=== PATIENT | male | born 1950 | race Hispanic/Latino ===

== ENCOUNTER → 2017-07-04 | Day surgery (SDC) | payer MEDICARE ==
--- NOTE | 2017-07-03 14:35 | Diagnostic Imaging Report ---
PROCEDURE: Frontal and lateral views of the chest. COMPARISON: Chest radiograph 06/12/2017 INDICATIONS: PRE OP BLADDER SURGERY FINDINGS: Lines/tubes: None. Lungs: The lungs are well inflated and clear. There is no evidence of pneumonia or pulmonary edema. Pleura: There is no pleural effusion or pneumothorax. Heart and mediastinum: The heart and the mediastinum are normal. Bones: No acute bony abnormality. Stable metallic structure in the spinal canal of the mid thoracic spine. IMPRESSION: No acute cardiopulmonary disease. Dictated by: Piter Hickey M.D. on 07/03/2017 at 14:43 Electronically approved by: Piter Hickey M.D. on 07/03/2017 at 14:43
[2017-07-03 14:40] LABS: BASOPHILS % 0.3 % (0.0-1.0); EOSINOPHILS % 0.2 % (0.0-6.0); LYMPHOCYTES # (AUTO) 0.5 (1.0-3.2); LYMPHOCYTES % 8.1 % (18.0-39.1); MEAN CORPUSCULAR HEMOGLOBIN 31.7 pg (28-32); MEAN CORPUSCULAR HGB CONC 33.3 g/dL (31-35); MEAN CORPUSCULAR VOLUME 95.2 fL (81-99); MONOCYTES # (AUTO) 0.2 (0.2-0.8); MONOCYTES % 2.5 % (4.4-11.3); NEUTROPHILS # (AUTO) 5.3 (2.1-6.9); NEUTROPHILS % 88.1 % (38.7-80.0); PLATELET COUNT 256 x10e3/uL (140-360); RED BLOOD COUNT 3.15 x10e6/uL (4.3-5.7); RED CELL DISTRIBUTION WIDTH 12.7 % (11.7-14.4)
[2017-07-03 14:55] LABS: ANION GAP 12.2 mmol/L (8-16); BLOOD UREA NITROGEN 13 mg/dL (7-26); BUN/CREATININE RATIO 18 (6-25); CALCIUM 9.1 mg/dL (8.4-10.2); CARBON DIOXIDE 25 mmol/L (22-29); CHLORIDE 106 mmol/L (98-107); CREATININE, SERUM 0.74 mg/dL (0.72-1.25); EST GLOMERULAR FILTRATION RATE > 60 ML/MIN (60-); GLUCOSE 147 mg/dL (74-118); POTASSIUM 4.2 mmol/L (3.5-5.1); SODIUM 139 mmol/L (136-145)
[~2017-07-04] MED LIST: BELLADONNA/OPIUM 60 MG SUPP PR ONE; CEFDINIR300 MG PO; CEFTRIAXONE SOD 1 GM VIAL ONE; DEXAMETHASONE SOD PHOS INJ 4 MG/ML VIAL ONE; DIOVAN HCT 3201 EAC1 PO; DIPHENHYDRAMINE HCL INJ 50 MG/ML VIAL ONE; FENTANYL CITRATE/PF 100MCG/2 ML INJ ONE; FLOMAX0.4 MG PO; GENTAMICIN 80MG/NS 100 ML 50 ML IV ONE; GENTAMICIN 80MG/NS IV ONE; HUMALOG100 UNIT/3 SC; IOPAMIDOL 610MG/1ML 300 MG/ML VIAL IV ONE; LEVAQUIN500 MG PO; LEVEMIR100 UNIT/1 SC; LIDOCAINE HCL 2% LOCAL INJ 5 ML SDV VIAL INJ ONE; MEDROL4 MG/DOSE-; MIDAZOLAM HCL 2 MG/2 ML VIAL ONE; MORPHINE SULFATE INJ 10 MG/ML ONE; NORCO 5-325 TA1 EACH PO; ONDANSETRON HCL INJ 2 MG/ML VIAL ONE; PROPOFOL IV EMULSION 10 MG/ML 20 ML VIAL ONE; SEVOFLURANE INHAL SOLN 250 ML PEN BTL ONE; ULTRAM50 MG PO
--- NOTE | 2017-08-25 06:57 | Operative Report ---
DATE OF PROCEDURE: July 04, 2017 PREOPERATIVE DIAGNOSES 1. Lower tract urinary obstruction. 2. Urinary tract infections. POSTOPERATIVE DIAGNOSES 1. Urethral stricture disease. 2. Obstructive BPH. 3. Bladder neck contracture and obstruction. 4. Urinary tract infections. OPERATIONS PERFORMED: Note these are all staged procedures as part of multistage, multistep process in management of the patient's obstructive uropathy. 1. Cystourethroscopy with calibration and dilation of urethral stricture disease (separate procedure performed for the diagnosis of stricture). 2. Cystourethroscopy with transurethral resection of the bladder neck (separate procedure performed for the bladder neck contracture). 3. Cystourethroscopy with transurethral incision of the prostate (separate procedure performed for the obstructive BPH). 4. Cystourethroscopy with bilateral ureteral catheterization and retrograde ureteropyelography (separate procedure performed for the urinary tract infections). 5. Interpretation of retrograde ureteropyelography. 6. Interpretation of cystography. 7. Supervision of fluoroscopy. No radiologist present. ANESTHESIA: General. COMPLICATIONS: None. CLINICAL SUMMARY: Conor Mccoy is a 67-year-old man with obstructive BPH and urinary tract infections. He is brought to the operating room today to manage his lower urinary tract. He is aware of the risks of bleeding, infection, injury to adjacent structures, need for additional procedures, and elected to proceed. OPERATIVE PROCEDURE IN DETAIL: Informed consent was verified. Conor Mccoy was properly identified and taken to the operating room and placed on the cystoscopy table in the supine position. Anesthesia was uneventfully begun. The patient was then carefully and gently repositioned in the dorsal lithotomy position with all pressure points well-padded. His genitalia were prepared and draped in the usual sterile fashion. The 22.5-Singaporean cystoscope sheath with visual obturator in place was atraumatically inserted in the patient's urethra. It was guided down the urethra, which exhibited urethral stricture disease present throughout the majority of the patient's urethra. We dilated across these strictures with the visual obturator in place up to 22.5-Singaporean. We then proceeded by passing and dilating across this stricture just outside the external urinary sphincter. We then entered the patient's prostate bed that was significant for some regrowth of the patient's BPH, as well as the bladder neck contracture. We entered the patient's bladder. The bladder was drained. Panendoscopy of the urinary bladder revealed at least grade 2 trabeculations, but no tumors. No stones and no diverticula. Normally positioned and configured ureteral orifices were identified. An 8-Singaporean catheter was used to cannulate each ureter, and retrograde ureteropyelograms were performed. Interpretation of retrograde ureteropyelography. Contrast was instilled in a retrograde fashion bilaterally. There were no tumors. No stones and no diverticula. Unobstructed drainage was observed bilaterally fluoroscopically. We removed the cystoscope sheath and the resectoscope sheath was then placed under direct vision with the visual obturator in place. As we guided the sheath through the urethra, we dilated the urethra to the border of the resectoscope sheath. We then utilized the Resendiz knife. First we incised the bladder neck and opened it wide open. The incision was made at the 5 and 7 o'clock positions down to non-scarred tissue. This popped open the bladder neck. There seemed to be some obstruction at the level of the prostate bed at the residual tissue. We therefore proceeded with performing a transurethral incision of the prostate at the 5 and 7 o'clock positions. Once we finished this incision, the prostate bed was wide open. The resectoscope was withdrawn. The Vivas catheter was placed. It was inflated beyond the 30 mL of water in the 30 mL balloon. Contrast was then injected performing cystography. Interpretation cystography. The Vivas catheter balloon was in appropriate position within the bladder. I could not account assistant vesicoureteric reflux due to the prior retrograde pyelograms. The bladder exhibited some trabeculation. No extravasation was noted. A belladonna and opium suppository was placed. The patient was uneventfully reversed from anesthesia and taken to the recovery room in stable condition. There were no complications to the procedure. He tolerated the procedure well. Estimated blood loss was minimal. Explicit postoperative instructions were given. Will then plan on returning the patient to the office at which point in time will perform uroflowmetry and bladder ultrasonography. Job#: [id number] VENECIA
== END | disposition home or self-care (01) ==
LOC: OR 09:14
PROVIDERS: ATTEND Urology
DX: N40.1 Benign prostatic hyperplasia with lower urinary tract symptoms (principal); N13.8 Other obstructive and reflux uropathy; N32.0 Bladder-neck obstruction; N39.0 Urinary tract infection, site not specified; N35.9 Urethral stricture, unspecified; N32.89 Other specified disorders of bladder; N31.9 Neuromuscular dysfunction of bladder, unspecified; N39.41 Urge incontinence; R35.1 Nocturia; R81 Glycosuria; N52.9 Male erectile dysfunction, unspecified; G35 Multiple sclerosis; E11.9 Type 2 diabetes mellitus without complications; I10 Essential (primary) hypertension; D64.9 Anemia, unspecified; F41.9 Anxiety disorder, unspecified; Z01.810 Encounter for preprocedural cardiovascular examination; Z01.812 Encounter for preprocedural laboratory examination; Z01.818 Encounter for other preprocedural examination; Z79.4 Long term (current) use of insulin
CPT/HCPCS: 36415 ×2; 52005; 52630; 71020; 74420; 80048; 82948; 85025; 93005; C1758; J0696; J1100; J1200; J1580; J2001; J2250; J2270; J2405; Q9967

== ENCOUNTER 2017-08-18 13:08 | Emergency (ER) | payer MEDICARE ==
[~2017-08-18] VITALS: Ht 180.3 cm; Wt 87.5 kg
[~2017-08-18 13:08] MED LIST changes: -BELLADONNA/OPIUM 60 MG SUPP PR ONE; -CEFTRIAXONE SOD 1 GM VIAL ONE; -DEXAMETHASONE SOD PHOS INJ 4 MG/ML VIAL ONE; -DIPHENHYDRAMINE HCL INJ 50 MG/ML VIAL ONE; -FENTANYL CITRATE/PF 100MCG/2 ML INJ ONE; -GENTAMICIN 80MG/NS 100 ML 50 ML IV ONE; -GENTAMICIN 80MG/NS IV ONE; -IOPAMIDOL 610MG/1ML 300 MG/ML VIAL IV ONE; -LIDOCAINE HCL 2% LOCAL INJ 5 ML SDV VIAL INJ ONE; -MIDAZOLAM HCL 2 MG/2 ML VIAL ONE; -MORPHINE SULFATE INJ 10 MG/ML ONE; -ONDANSETRON HCL INJ 2 MG/ML VIAL ONE; -PROPOFOL IV EMULSION 10 MG/ML 20 ML VIAL ONE; -SEVOFLURANE INHAL SOLN 250 ML PEN BTL ONE
--- NOTE | 2017-08-18 14:36 | Diagnostic Imaging Report ---
PROCEDURE:HIP RIGHT 2-3 VW (+/- PELVIS) COMPARISON:None. INDICATIONS:FALL, HIP PAIN FINDINGS: See conclusion. CONCLUSION: No evidence of acute displaced fracture or dislocation of the hips. Right pelvic phleboliths. Dictated by: Joselito Burgos M.D. on 08/18/2017 at 14:45 Electronically approved by: Joselito Burgos M.D. on 08/18/2017 at 14:45
--- NOTE | 2017-08-18 14:43 | Diagnostic Imaging Report ---
PROCEDURE:L-SPINE COMPLETE COMPARISON:None. INDICATIONS:FALL, BACK PAIN FINDINGS: There are 5 lumbar-type vertebral bodies. The vertebral bodies are well-aligned, except for grade 1 L5-S1 spondylolisthesis. Compression deformity of L4 vertebral body. Multilevel degenerative changes. The is also lower lumbar spine facet arthropathy. CONCLUSION: Compression deformity/fracture of L4 vertebral body. Dictated by: Joselito Burgos M.D. on 08/18/2017 at 14:52 Electronically approved by: Joselito Burgos M.D. on 08/18/2017 at 14:52
[2017-08-18 16:55] VITALS: BP 151/100
== END 2017-08-18 16:53 | disposition home or self-care (01) ==
LOC: ER 13:08
DX: S70.01XA Contusion of right hip, initial encounter (principal); W01.0XXA Fall on same level from slipping, tripping and stumbling without subsequent striking against object, initial encounter; Z91.81 History of falling; Y92.019 Unspecified place in single-family (private) house as the place of occurrence of the external cause; S32.049A Unspecified fracture of fourth lumbar vertebra, initial encounter for closed fracture
CPT/HCPCS: 72110; 99283

== ENCOUNTER → 2017-08-25 | Outpatient (CLI) | payer MEDICARE ==
[~2017-08-25] MED LIST changes: +GABAPENTIN300 MG PO
--- NOTE | 2017-08-25 15:55 | Diagnostic Imaging Report ---
EXAMINATION: MRI of the lumbar spine without contrast HISTORY: Lumbar spine vertebral fracture COMPARISON: Abdomen CT on 06/12/2017 TECHNIQUE: Sagittal T1, T2, STIR; axial T2 and proton density. FINDINGS: It is assumed that there are 5 lumbar vertebrae. Curvature/Alignment: Straightening of the lumbar lordosis. Persistent grade 2 spondylolisthesis at L5-S1 with bilateral L5 spondylolyses, portable prior posterior fusion. Vertebrae: Moderate recent compression fracture of the L4 vertebral body, with decreased vertebral body height anteriorly by approximately 50%, with prominent subchondral bone marrow edema. The fracture is not extending to the posterior cortex or posterior elements. No associated posterior ligamentous injury. No infection, or neoplasm. Conus: Normal, terminating at L1 Cauda equina: Unremarkable. Lower thoracic: Mild symmetric disc bulge at T12-L1 without stenosis Paraspinal soft tissues: Severe atrophy of the posterior paraspinal muscles from L4 to the sacrum. Degenerative changes: L1-L2: Symmetric disc bulge and facet arthrosis. Mild foraminal stenoses L2-L3: Mild symmetric disc bulge, ligamenta flava thickening and facet arthrosis. Mild spinal canal stenosis. L3-L4: Minimal symmetric disc bulge, prominent facet arthrosis. No significant stenoses. L4-L5: Mild disc bulge, prominent facet arthrosis. Mild foraminal stenosis. L5-S1: Probable prior posterior fusion with solid fusion on the right, no fusion on the left as was seen on prior abdomen CT dated 11/17/2015. Symmetric disc bulge, marginal endplate osteophytes and prominent facet arthrosis. Moderately severe bilateral foraminal stenoses. IMPRESSION: 1. Moderate recent compression fracture of the L4 vertebral body without posterior retropulsion or canal stenoses. 2. Persistent grade 2 spondylolisthesis at L5-S1. 3. Posterior fusion at L5-S1 as detailed above. 4. Persistent moderately severe bilateral foraminal stenosis at L5-S1. 5. Mild degenerative canal stenosis at L2-L3. The findings were discussed with the attending physicians coordinator Devika at the time of this dictation, she expresses understanding and well inform the attending physician about this findings. Signed by: Dr. Carolina Sharma M.D. on 08/25/2017 3:51 PM
== END ==
LOC: MRI 12:57
PROVIDERS: ATTEND Anesthesiology
DX: S32.009S Unspecified fracture of unspecified lumbar vertebra, sequela (principal)
CPT/HCPCS: 72148

== ENCOUNTER 2017-09-01 05:16 | Emergency (ER) | payer MEDICARE ==
[~2017-09-01] VITALS: Ht 180.3 cm; Wt 87.5 kg
[~2017-09-01 05:16] MED LIST changes: -GABAPENTIN300 MG PO
--- OUTSIDE RECORDS SUMMARY | 2017-09-01 05:20 | XMS REPORT ---
[facility] Address Unknown Phone Unavailable Care Team Providers Care Passenger Service Representative Name Role Phone RAMILA LEWIS Unavailable Unavailable MALIK GONZALEZ Unavailable Unavailable JS, CONNIE Unavailable Unavailable TORIBIO, HARSH Unavailable Unavailable Problems This patient has no known problems. Allergies, Adverse Reactions, Alerts This patient has no known allergies or adverse reactions. Medications This patient has no known medications. Results Test Description Test Time Test Comments Text Results Atomic Results Result Comments MRI SPINE LUMBAR WO [place] [address] Patient Name: ALEJANDRO CASTAÑEDA MR #: [id number] : 1950 Age/Sex: 67/M Req #: [id number] Adm Physician: Ordered by: RAMILA LEWIS MD Report #: [id number] Location: MRI Room/Bed: Procedure: [id number] MRI/MRI SPINE LUMBAR WO Exam Date: Exam Time: REPORT STATUS: Signed EXAMINATION: MRI of the lumbar spine without contrast HISTORY: Lumbar spine vertebral fracture COMPARISON: Abdomen CT on 06/12/2017 TECHNIQUE: Sagittal T1, T2, STIR; axial T2 and proton density. FINDINGS: It is assumed that there are 5 lumbar vertebrae. Curvature/Alignment: Straightening of the lumbar lordosis. Persistent grade 2 spondylolisthesis at L5-S1 with bilateral L5 spondylolyses, portable prior posterior fusion. Vertebrae: Moderate recent compression fracture of the L4 vertebral body, with decreased vertebral body height anteriorly by approximately 50%, with prominent subchondral bone marrow edema. The fracture is not extending to the posterior cortex or posterior elements. No associated posterior ligamentous injury. No infection, or neoplasm. Conus: Normal, terminating at L1 Cauda equina: Unremarkable. Lower thoracic: Mild symmetric disc bulge at T12-L1 without stenosis Paraspinal soft tissues: Severe atrophy of the posterior paraspinal muscles from L4 to the sacrum. Degenerative changes : L1-L2: Symmetric disc bulge and facet arthrosis. Mild foraminal stenoses L2-L3: Mild symmetric disc bulge, ligamenta flava thickening and facet arthrosis. Mild spinal canal stenosis. L3-L4: Minimal symmetric disc bulge, prominent facet arthrosis. No significant stenoses. L4-L5: Mild disc bulge, prominent facet arthrosis. Mild foraminal stenosis. L5-S1: Probable prior posterior fusion with solid fusion on the right, no fusion on the left as was seen on prior abdomen CT dated 2015. Symmetric disc bulge, marginal endplate osteophytes and prominent facet arthrosis. Moderately severe bilateral foraminal stenoses. IMPRESSION : 1. Moderate recent compression fracture of the L4 vertebral body without posterior retropulsion or canal stenoses. 2. Persistent grade 2 spondylolisthesis at L5-S1. 3. Posterior fusion at L5-S1 as detailed above. 4. Persistent moderately severe bilateral foraminal stenosis at L5- S1. 5. Mild degenerative canal stenosis at L2-L3. The findings were discussed with the attending physicians coordinator Devika at the time of this dictation, she expresses understanding and well inform the attending physician about this findings. Signed by: Dr. Corby Sharma M.D. on 2017 3:51 PM Dictated By: CORBY SHARMA MD 1558 Transcribed By: BLAISE on 08/25/17 1553 COPY TO: RAMILA LEWIS MD HIP RIGHT 2-3 VW (+/- PELVIS) [place] [address] Patient Name: ALEJANDRO CASTAÑEDA MR #: [id number] : 1950 Age/Sex: 67/M Req #: [id number] Adm Physician: Ordered by: GILDARDO CEE Report #: [id number] Location: ER Room/Bed: _ Procedure: [id number] DX/HIP RIGHT 2-3 VW (+/- PELVIS) Exam Date: Exam Time: REPORT STATUS: Signed PROCEDURE: HIP RIGHT 2-3 VW (+/- PELVIS) COMPARISON: None. INDICATIONS: FALL, HIP PAIN FINDINGS: See conclusion. CONCLUSION: No evidence of acute displaced fracture or dislocation of the hips. Right pelvic phleboliths. Dictated by: Joselito Rivera M.D. on 08/18/2017 at 14: 45 Electronically approved by: Joselito Rivera M.D. on 08/18/2017 at 14: 45 Dictated By: JOSELITO RIVERA MD 144 Transcribed By: SUSAN on 08/18/17 1445 COPY TO: GILDARDO CEE SP LUMBAR, COMPLETE MIN 4VW [place] [address] Patient Name: ALEJANDRO CASTAÑEDA MR #: [id number] : 1950 Age/Sex: 67/M Req #: [id number] Adm Physician: Ordered by: GILDARDO CEE Report #: [id number] Location: ER Room/Bed: _ Procedure: [id number] DX/SP LUMBAR, COMPLETE MIN 4VW Exam Date: 08/18/17 Exam Time: 1400 REPORT STATUS: Signed PROCEDURE: L-SPINE COMPLETE COMPARISON: None. INDICATIONS: FALL, BACK PAIN FINDINGS: There are 5 lumbar-type vertebral bodies. The vertebral bodies are well-aligned, except for grade 1 L5-S1 spondylolisthesis. Compression deformity of L4 vertebral body. Multilevel degenerative changes. The is also lower lumbar spine facet arthropathy. CONCLUSION: Compression deformity/fracture of L4 vertebral body. Dictated by: Joselito Rivera M.D. on 08/18/2017 at 14:52 Electronically approved by: Joselito Rivera M.D. on 08/18/2017 at 14:52 Dictated By: JOSELITO RIVERA MD 51 Transcribed By: SUSAN on 08/18/171451 COPY TO: GILDARDO CEE CHEST 2 VIEWS [place] [address] Patient Name: ALEJANDRO CASTAÑEDA MR #: [id number] : 1950 Age/Sex: 67/M Req #: [id number] [facility] Physician: Ordered by: CONNIE WEINSTEIN MD Report #: [id number] Location: OR Room/Bed: Procedure: [id number] DX/ CHEST 2 VIEWS Exam Date: 07/03/17 Exam Time: 1400 REPORT STATUS: Signed PROCEDURE: Frontal and lateral views of the chest. COMPARISON: Chest radiograph 06/12/2017 INDICATIONS: PRE OP BLADDER SURGERY FINDINGS: Lines/tubes: None. Lungs: The lungs are well inflated and clear. There is no evidence of pneumonia or pulmonary edema. Pleura: There is no pleural effusion or pneumothorax. Heart and mediastinum: The heart and the mediastinum are normal. Bones: No acute bony abnormality. Stable metallic structure in the spinal canal of the mid thoracic spine. IMPRESSION: No acute cardiopulmonary disease. Dictated by: Piter Hester M.D. on 07/03/2017 at 14:43 Electronically approved by: Piter Hester M.D. on 07/03/2017 at 14:43 Dictated By: PITER HESTER MD 1443 Transcribed By: SUSAN on 07/03/17 1443 COPY TO: CONNIE WEINSTEIN MD CT BRAIN WO [place] [address] Patient Name: ALEJANDRO CASTAÑEDA MR #: [id number] : 1950 Age/Sex: 67/M Req #: [id number] Adm Physician: Ordered by: MESFIN BOUCHER MD Report #: [id number] Location: ER Room/Bed: Procedure: [id number] CT/CT BRAIN WO Exam Date: 06/12/17 Exam Time: 1255 REPORT STATUS: Signed Exam: Head CT without contrast History: Altered mental status Comparison studies: None Technique: Axial images were obtained from the skull base to the vertex. Coronal and sagittal images reconstructed from the axial data. Intravenous contrast: None Findings: Exam is limited by artifacts related to patient motion. In spite of this limitation: Scalp: Incidental focal soft tissue thickening in the right parietal scalp with small overlying punctate dystrophic calcification. Findings may reflect sequela previous trauma and could be correlated with direct inspection. Bones: No fractures, blastic or lytic lesions. In spite of these limitations: Brain sulci: Appropriate for age. Ventricles: Normal in size and configuration. No hydrocephalus. Extra- axial spaces: No masses, no fluid collection. Parenchyma: No mass, acute hemorrhage or acute or chronic cortical vascular insults. Sellar/ suprasellar region: No abnormalities. Craniocervical junction: Patent foramen magnum. No Chiari one malformation. Incidental findings: Atherosclerotic calcifications in the carotid siphons.. IMPRESSION: No acute abnormalities. Signed by: Dr. Claire Barajas M.D. on 06/12/2017 1: 57 PM Dictated By: CLAIRE BARAJAS MD 135 Transcribed By: BLAISE on 06/12/17 135 COPY TO: MESFIN BOUCHER MD CHEST SINGLE (PORTABLE) [place] [address] Patient Name: ALEJANDRO CASTAÑEDA MR #: [id number] : 1950 Age/Sex: 67/M Req #: [id number] Adm Physician: HARSH ROONEY MD Ordered by: MESFIN BOUCHER MD Report #: [id number] Location: ICU Room/Bed: ICU [facility] __ Procedure: [id number] DX/CHEST SINGLE (PORTABLE) Exam Date : 06/12/17 Exam Time: 1255 REPORT STATUS: Signed Examination: Single AP view of the chest. COMPARISON: None. INDICATION: Altered mental status DISCUSSION: Lines/tubes: None. Lungs: The lungs are well inflated and clear. No pneumonia or pulmonary edema. Pleura: There is no pleural effusion or pneumothorax. Heart and mediastinum: The heart and the mediastinum are unremarkable. Bones and soft tissues: No acute bony abnormalities. IMPRESSION: 1. No acute cardiopulmonary abnormalities. Signed by: Dr. Aryan Oliva M.D. on 06/12/2017 3:10 PM Dictated By: ARYAN OLIVA MD 09 Transcribed By: BLAISE on 06/12/171509 COPY TO: MESFIN BOUCHER MD
[2017-09-01] MEDS ORDERED: MORPHINE SULFATE 2 MG/ML SYR IV STA (05:41)
[2017-09-01] MEDS ORDERED: PANTOPRAZOLE 40 MG 10ML VIAL IV STA (05:41)
[2017-09-01] MEDS ORDERED: SODIUM CHLORIDE 0.9% 1000ML 1,000 ML IV STA (05:41)
[2017-09-01] MEDS ORDERED: ONDANSETRON HCL INJ 2 MG/ML VIAL IV STA (05:41)
[2017-09-01 06:22] LABS: BASOPHILS % 0.5 % (0.0-1.0); EOSINOPHILS # (AUTO) 0.1 (0.0-0.4); EOSINOPHILS % 1.7 % (0.0-6.0); HEMATOCRIT 46.5 % (38.2-49.6); HEMOGLOBIN 15.5 g/dL (14.0-18.0); LYMPHOCYTES % 17.5 % (18.0-39.1); MEAN CORPUSCULAR HEMOGLOBIN 31.2 pg (28-32); MEAN CORPUSCULAR HGB CONC 33.3 g/dL (31-35); MEAN CORPUSCULAR VOLUME 93.6 fL (81-99); MONOCYTES # (AUTO) 0.6 (0.2-0.8); MONOCYTES % 9.7 % (4.4-11.3); NEUTROPHILS # (AUTO) 4.1 (2.1-6.9); NEUTROPHILS % 69.9 % (38.7-80.0); PLATELET COUNT 255 x10e3/uL (140-360); RED BLOOD COUNT 4.97 x10e6/uL (4.3-5.7); RED CELL DISTRIBUTION WIDTH 12.1 % (11.7-14.4)
[2017-09-01 06:23] LABS: KETONES,URINE NEGATIVE (NEGATIVE); LEUKOCYTE ESTERASE ,URINE NEGATIVE (NEGATIVE); NITRITE,URINE NEGATIVE (NEGATIVE); PROTEIN,URINE DIPSTICK NEGATIVE (NEGATIVE); URINE UROBILINOGEN 1 mg/dL (0.2 - 1)
[2017-09-01 06:24] LABS: BILIRUBIN,URINE 1+ (NEGATIVE); CLARITY,URINE CLEAR (CLEAR); COLOR,URINE YELLOW (YELLOW)
[2017-09-01 06:37] LABS: BACTERIA,URINE FEW /HPF; EPITHELIAL CELLS,URINE FEW /LPF
[2017-09-01 06:40] LABS: PROTHROMBIN TIME 12.4 seconds (11.9-14.5)
[2017-09-01 06:41] LABS: PARTIAL THROMBOPLASTIN TIME 32.1 seconds (23.8-35.5)
[2017-09-01 06:51] LABS: ALANINE AMINOTRANSFERASE 60 IU/L (0-55); ALKALINE PHOSPHATASE 120 IU/L (40-150); AMYLASE 59 U/L (25-125); ANION GAP 13.5 mmol/L (8-16); BLOOD UREA NITROGEN 19 mg/dL (7-26); BUN/CREATININE RATIO 25 (6-25); CALCIUM 9.2 mg/dL (8.4-10.2); CARBON DIOXIDE 22 mmol/L (22-29); CHLORIDE 101 mmol/L (98-107); CREATINE KINASE 48 IU/L (30-200); CREATININE, SERUM 0.76 mg/dL (0.72-1.25); EST GLOMERULAR FILTRATION RATE > 60 ML/MIN (60-); GLUCOSE 133 mg/dL (74-118); LIPASE 20 U/L (8-78); MAGNESIUM 1.7 MG/DL (1.3-2.1); POTASSIUM 3.5 mmol/L (3.5-5.1); SODIUM 133 mmol/L (136-145)
[2017-09-01] MEDS ORDERED: GABAPENTIN300 MG PO (06:58)
[2017-09-01 07:10] LABS: THYROID STIMULATING HORMONE 0.799 uIU/mL (0.350-4.940)
[2017-09-01] MEDS ORDERED: CEFTRIAXONE SOD 1 GM VIAL IV STA (07:28)
--- NOTE | 2017-09-01 08:42 | Diagnostic Imaging Report ---
PROCEDURE: CT ABDOMEN AND PELVIS WITH CONTRAST TECHNIQUE: The abdomen and pelvis were scanned utilizing a multidetector helical scanner from the diaphragm to the lesser trochanter after the IV administration of 100 cc of Isovue 370 and the oral administration of water. Coronal and sagittal multiplanar reformations were obtained. DLP: 630.23 mGy-cm COMPARISON: [facility], CT, CT ABDOMEN/PELVIS WO, 12/23/2016, 14:43. INDICATIONS: ABDOMEN PAIN FINDINGS: LOWER THORAX: Normal. HEPATOBILIARY: No focal hepatic lesions. No biliary ductal dilatation. SPLEEN: No splenomegaly. PANCREAS: No focal masses or ductal dilatation. ADRENALS: No adrenal nodules. KIDNEYS/URETERS: No hydronephrosis, stones, or solid mass lesions. There are 2 right upper pole renal cysts with the largest being exophytic measuring 2.7 cm and extending posteriorly. PELVIC ORGANS/BLADDER: Unremarkable. PERITONEUM / RETROPERITONEUM: No free air or fluid. LYMPH NODES: No lymphadenopathy. VESSELS: Atherosclerotic vascular calcification in the aorta and iliac vessels. GI TRACT: Moderate retained fecal material throughout the colon. The appendix is normal. No bowel wall thickening or dilatation. BONES AND SOFT TISSUES: Lower thoracic spine metallic device posterior to T7 and T8 is unchanged. Compression fracture of L4 is new compared to the prior study. There is anterior listhesis of L5 on S1. Extensive facet arthrosis and posterior element degenerative changes from L3-L5 with partial fusion. IMPRESSION: 1. No acute abnormality within the abdomen or pelvis. 2. New compression fracture of L4. 3. Moderate amount of colonic retained fecal material may represent constipation. Joshua Randall D.O. Dictated by: Joshua Randall D.O. on 09/01/2017 at 8:51 Electronically approved by: Joshua Randall D.O. on 09/01/2017 at 8:51
[2017-09-01] MEDS ORDERED: DIPHENHYDRAMINE HCL INJ 50 MG/ML VIAL IV ONE (09:15)
--- NOTE | 2017-09-01 09:38 | Diagnostic Imaging Report ---
Examination: CT BRAIN WITHOUT CONTRAST History:Nausea. Vomiting. Comparison studies:CT Head dated 06/12/2017. Technique: Axial images were obtained from the skull base to the vertex. Coronal and sagittal images reconstructed from the axial data. Intravenous contrast: None Findings: Scalp: Unchanged right parietal scalp soft tissue containing with punctate (1 mm) dystrophic calcification, likely the result of prior trauma. Bones: No fractures, blastic or lytic lesions. Brain sulci: Appropriate for age. Ventricles: Normal in size and configuration. No hydrocephalus. Extra-axial space: No abnormalities. Parenchyma: No masses, hemorrhage, or acute or chronic cortically vascular insults. Sellar/suprasellar region: No abnormalities. Craniocervical junction: Patent foramen magnum. No Chiari one malformation. Incidental findings: Atherosclerotic calcification of the cavernous and supraclinoid internal carotid arteries. Impression: No new or acute intracranial abnormalities. No change from prior head CT performed June 12, 2017. Signed by: Dr. Madison Molina M.D. on 09/01/2017 9:35 AM
[2017-09-01 11:30] VITALS: BP 110/78
[2017-09-01] MEDS ORDERED: SODIUM CHLORIDE 0.9% 50ML 50 ML ONE (11:55)
[2017-09-01] MEDS ORDERED: IOPAMIDOL 370 MG/ML 200 ML INFUS..BTL INJ ONE (11:56)
== END 2017-09-01 11:40 | disposition home or self-care (01) ==
LOC: ER 05:16
DX: R10.12 Left upper quadrant pain (principal); R11.2 Nausea with vomiting, unspecified; N39.0 Urinary tract infection, site not specified; K59.00 Constipation, unspecified; R51 Headache; R42 Dizziness and giddiness
CPT/HCPCS: 36415; 70450; 74177; 80053; 81001; 82150; 82550; 82553; 82948; 83690; 83735; 84443; 84484; 85025; 85610; 85730; 87086; 87186; 87400; 93005; 96360; 96374; 99284; J0696; J1200; J2270; J2405; J7030; Q9967

== ENCOUNTER 2018-05-28 20:19 | Emergency (ER) | payer MEDICARE ==
[~2018-05-28] VITALS: Ht 180.3 cm; Wt 87.5 kg
[~2018-05-28 20:19] MED LIST changes: +GABAPENTIN300 MG PO
[2018-05-28] MEDS ORDERED: ONDANSETRON HCL INJ 2 MG/ML VIAL ONE (20:57)
[2018-05-28 21:32] LABS: BASOPHILS % 0.4 % (0.0-1.0); EOSINOPHILS # (AUTO) 0.2 (0.0-0.4); EOSINOPHILS % 2.1 % (0.0-6.0); HEMATOCRIT 41.9 % (38.2-49.6); HEMOGLOBIN 14.5 g/dL (14.0-18.0); LYMPHOCYTES # (AUTO) 1.4 (1.0-3.2); LYMPHOCYTES % 19.7 % (18.0-39.1); MEAN CORPUSCULAR HEMOGLOBIN 32.2 pg (28-32); MEAN CORPUSCULAR HGB CONC 34.6 g/dL (31-35); MEAN CORPUSCULAR VOLUME 92.9 fL (81-99); MONOCYTES # (AUTO) 0.7 (0.2-0.8); MONOCYTES % 9.4 % (4.4-11.3); NEUTROPHILS # (AUTO) 4.8 (2.1-6.9); PLATELET COUNT 213 x10e3/uL (140-360); RED BLOOD COUNT 4.51 x10e6/uL (4.3-5.7); RED CELL DISTRIBUTION WIDTH 11.9 % (11.7-14.4)
[2018-05-28 21:42] LABS: ALANINE AMINOTRANSFERASE 32 IU/L (0-55); ALBUMIN 3.9 g/dL (3.5-5.0); ALBUMIN/GLOBULIN RATIO 1.3 (0.8-2.0); ALKALINE PHOSPHATASE 88 IU/L (40-150); ANION GAP 15.4 mmol/L (8-16); BLOOD UREA NITROGEN 19 mg/dL (7-26); BUN/CREATININE RATIO 24 (6-25); CALCIUM 9.2 mg/dL (8.4-10.2); CARBON DIOXIDE 27 mmol/L (22-29); CHLORIDE 100 mmol/L (98-107); EST GLOMERULAR FILTRATION RATE > 60 ML/MIN (60-); GLUCOSE 175 mg/dL (74-118); POTASSIUM 3.4 mmol/L (3.5-5.1); SODIUM 139 mmol/L (136-145)
[2018-05-28 22:20] LABS: CLARITY,URINE CLEAR (CLEAR); COLOR,URINE YELLOW (YELLOW); LEUKOCYTE ESTERASE ,URINE NEGATIVE (NEGATIVE); NITRITE,URINE NEGATIVE (NEGATIVE); PROTEIN,URINE DIPSTICK NEGATIVE (NEGATIVE)
[2018-05-28 22:21] LABS: BILIRUBIN,URINE NEGATIVE (NEGATIVE); KETONES,URINE NEGATIVE (NEGATIVE)
[2018-05-28 22:22] LABS: BACTERIA,URINE FEW /HPF; EPITHELIAL CELLS,URINE RARE /LPF; RBC,URINE 0-5 /HPF (0-5); URINE UROBILINOGEN 1 mg/dL (0.2 - 1)
--- NOTE | 2018-05-29 00:41 | Diagnostic Imaging Report ---
EXAM: CT Abdomen and Pelvis WITH contrast INDICATION: Left lower quadrant pain. Abdominal pain, nausea, vomiting, painful urination COMPARISON: Abdominal CT 09/01/2017 TECHNIQUE: Abdomen and pelvis were scanned utilizing a multidetector helical scanner from the lung base to the pubic symphysis after administration of IV contrast. Coronal and sagittal reformations were obtained. Routine protocol was performed. Scan was performed during portal venous phase. IV CONTRAST: 100 mL of Isovue-370 ORAL CONTRAST: Water COMPLICATIONS: None RADIATION DOSE: Total DLP: 648.4 mGy*cm Estimated effective dose: (DLP x 0.015 x size factor) mSv CTDIvol has been reviewed. It is below the limits set by the Radiation Protocol Committee (RPC). Dose modulation, iterative reconstruction, and/or weight based adjustment of the mA/kV was utilized to reduce the radiation dose to as low as reasonably achievable. FINDINGS: LINES and TUBES: None. LOWER THORAX: Unremarkable HEPATOBILIARY: Hepatic segment VII 1.4 cm hypoattenuating lesion with peripheral nodular focus of enhancement (series 2 image 14), likely a hemangioma. No biliary ductal dilation. GALLBLADDER: No radio-opaque stones or sludge. No wall thickening. SPLEEN: No splenomegaly. PANCREAS: No focal masses or ductal dilatation. ADRENALS: No adrenal nodules KIDNEYS/URETERS: Kidneys enhance symmetrically. No hydronephrosis. Right renal 2.5 cm exophytic cyst in the interpolar region and 1.5 cm cyst in the superior pole. Additional scattered hypodensities both kidneys are too small to characterize, statistically likely cysts. No stones. GI TRACT: No abnormal distention or evidence of bowel obstruction. Ascending colonic wall thickening likely secondary to underdistention. There are numerous diverticula within the colon without evidence of diverticulitis. Appendix is normal. PELVIC ORGANS/BLADDER: V-shaped defect in the superior prostate suggestive of TURP. Prostate does not appear enlarged. Urinary bladder is collapsed, limiting evaluation. LYMPH NODES: No lymphadenopathy. VESSELS: There is moderate atherosclerotic disease in the aorta and major arterial branches. PERITONEUM / RETROPERITONEUM: No free air or fluid. BONES: L4 compression deformity with vertebroplasty cement. Anterolisthesis of L5 on S1 of approximately 1.2 cm. Multilevel degenerative changes of the spine. Severe facet hypertrophy from L3 to S1. Posterior spinal canal T7 and T8. SOFT TISSUES: Unremarkable. IMPRESSION: 1. No acute abnormalities. 2. Colonic diverticulosis. 3. Right hepatic hemangioma. 4. Renal cysts. 5. TURP defect in the prostate. 6. Grade 2 anterolisthesis of L5 on S1. Signed by: DR. Piter Hickey MD on 05/29/2018 12:37 AM
[2018-05-29 00:46] VITALS: BP 125/85
[2018-05-29] MEDS ORDERED: ZOFRAN ODT4 MG SL (00:51)
[2018-05-29] MEDS ORDERED: SODIUM CHLORIDE 0.9% 50ML 50 ML ONE (01:16)
[2018-05-29] MEDS ORDERED: IOPAMIDOL 370 MG/ML 200 ML INFUS..BTL INJ ONE (01:17)
== END 2018-05-29 01:00 | disposition home or self-care (01) ==
LOC: ER 20:19
DX: R30.0 Dysuria (principal); R10.32 Left lower quadrant pain; I10 Essential (primary) hypertension; E11.9 Type 2 diabetes mellitus without complications; E78.00 Pure hypercholesterolemia, unspecified; M10.9 Gout, unspecified
CPT/HCPCS: 36415; 74177; 80053; 81001; 85025; 99284; J2405; Q9967

== ENCOUNTER 2018-08-06 04:00 | Emergency (ER) | payer MEDICARE ==
[~2018-08-06] VITALS: Ht 180.3 cm; Wt 87.5 kg
[~2018-08-06 04:00] MED LIST changes: +ZOFRAN ODT4 MG SL
[2018-08-06 05:13] LABS: CLARITY,URINE CLEAR (CLEAR); COLOR,URINE YELLOW (YELLOW)
[2018-08-06 05:14] LABS: BACTERIA,URINE RARE /HPF; BILIRUBIN,URINE NEGATIVE (NEGATIVE); EPITHELIAL CELLS,URINE RARE /LPF; KETONES,URINE NEGATIVE (NEGATIVE); LEUKOCYTE ESTERASE ,URINE NEGATIVE (NEGATIVE); NITRITE,URINE NEGATIVE (NEGATIVE); PROTEIN,URINE DIPSTICK NEGATIVE (NEGATIVE); RBC,URINE 0-5 /HPF (0-5); URINE UROBILINOGEN 0.2 mg/dL (0.2 - 1); WBC,URINE (MAN) 0-5 /HPF (0-5)
--- NOTE | 2018-08-06 05:54 | Diagnostic Imaging Report ---
Exam: 2 views of the abdomen Indication: Stomach pain Comparison: CT abdomen and pelvis May 28, 2018 Findings: No consolidations in the lung bases. Intrathecal device projects over the lower thorax. Nonobstructive bowel gas pattern. Surgical changes of the lower lumbar spine. Impression: No acute findings. Signed by: Dr. Herlinda Metzger M.D. on 08/06/2018 5:51 AM
[2018-08-06 06:04] VITALS: BP 142/89
== END 2018-08-06 06:19 | disposition home or self-care (01) ==
LOC: ER 04:00
DX: R10.30 Lower abdominal pain, unspecified (principal); R11.0 Nausea; I10 Essential (primary) hypertension; E11.9 Type 2 diabetes mellitus without complications; E78.5 Hyperlipidemia, unspecified; G35 Multiple sclerosis
CPT/HCPCS: 36415; 74019; 81001; 82948; 87086; 99283

== ENCOUNTER → 2018-09-23 | Day surgery (SDC) | payer MEDICARE ==
--- NOTE | 2018-09-21 16:51 | Diagnostic Imaging Report ---
EXAMINATION: PA and lateral views of the chest. COMPARISON: None CLINICAL HISTORY: Preoperative study for prostate procedure DISCUSSION: Lungs are well-inflated and without focal consolidation, pleural effusion, or pneumothorax. Tortuosity of the thoracic aorta with otherwise normal cardiomediastinal contour. No acute osseous abnormality. Indeterminate radiopacities project over the lower thoracic vertebral column. IMPRESSION: No acute cardiopulmonary abnormalities. Signed by: Dr. Cooper Victor M.D. on 09/21/2018 4:48 PM
[~2018-09-23] MED LIST changes: +ALLOPURINOL300 MG PO; +BELLADONNA/OPIUM 30 MG SUPP RC ONE; +BOTULINUM TOXIN TYPE A 100 UNIT VIAL IM ONE; +CEFTRIAXONE SOD 1 GM/NS 50 ML 50 ML IV ONE; +DEXAMETHASONE SOD PHOS INJ 4 MG/ML VIAL ONE; +DIPHENHYDRAMINE HCL INJ 50 MG/ML VIAL ONE; +EPHEDRINE SULFATE INJ 50 MG/10 ML SYR ONE; +FENTANYL CITRATE/PF 100MCG/2 ML INJ ONE; +IOPAMIDOL 610MG/1ML 300 MG/ML VIAL IV ONE; +LIDOCAINE HCL 2% LOCAL INJ 5 ML SDV VIAL INJ ONE; +LOSARTAN-HCTZ1 EACH PO; +MIDAZOLAM HCL 2 MG/2 ML VIAL ONE; +MYRBETRIQ50 MG PO; +ONDANSETRON HCL INJ 2MG/ML 2ML 2 MG/ML VIAL ONE; +OXYCODONE-ACET1 EAC3 PO; +PROPOFOL IV EMULSION 10 MG/ML 20 ML VIAL ONE; +SEVOFLURANE INHAL SOLN 250 ML PEN BTL ONE
[2018-09-23 10:30] VITALS: BP 138/95
--- NOTE | 2018-11-18 06:42 | Operative Report ---
DATE OF PROCEDURE: 09/23/2018 SURGEON: Jay Burgess MD PREOPERATIVE DIAGNOSES: 1. Refractory urge incontinence. 2. Urinary tract infections. POSTOPERATIVE DIAGNOSES: 1. Refractory urge incontinence. 2. Urinary tract infections. OPERATION PERFORMED: 1. Cystourethroscopy with bilateral ureteral catheterization and retrograde ureteropyelography (separate procedure performed for the urinary tract infections). 2. Interpretation of retrograde ureteropyelography. 3. Cystourethroscopy with intravesical injection of Botox six (separate procedure performed for the refractory urge incontinence). ANESTHESIA: General. COMPLICATIONS: None. CLINICAL SUMMARY: Conor Mccoy is a 68-year-old man who has a neurogenic bladder due to multiple sclerosis. He has a history of transurethral resection of the prostate because of the history of urethral stricture disease and is status post direct direct vision internal urethrotomy. He has also had a problem with bladder neck contracture for which he underwent transurethral resection. The patient is brought for the above procedures. He is aware of the risks of bleeding, infection, injury to adjacent structures, need for additional procedures and elected to proceed. OPERATIVE PROCEDURE IN DETAIL: Informed consent was verified. Conor Mccoy was properly identified, taken to the operating room and placed on the cystoscopy table in supine position. Anesthesia was uneventfully begun. The patient was then carefully gently repositioned in dorsal lithotomy position with all pressure points well padded. His genitalia were prepared and draped in usual sterile fashion. The 22.5-Polish cystoscope sheath with the visual obturator in place was atraumatically inserted in the patient's urethra and was guided relatively to unremarkable urethra which exhibited mild scarring around the sphincteric region, but no true strictures and we passed a normal sphincteric region into the patient's prostate bed, which was wide open, status post transurethral resection. The bladder neck was also wide open, status post prior TUR bladder neck. Panendoscopy of the bladder revealed trabeculations, but no tumors, no stones, no diverticula. No suspicious mucosal lesions were identified. A ureteral catheter was used to cannulate each ureter and retrograde ureteropyelogram was performed. Interpretation of retrograde ureteropyelography: Contrast was instilled in retrograde fashion bilaterally. There were no tumors, no stones, and no diverticula. Unobstructed drainage was observed bilaterally fluoroscopically. 100 units of Botox were dissolved in 10 mL of sterile saline. Botox was then injected in 0.5 mL aliquots in an even distribution in the supratrigonal bladder. The bladder was drained. Cystoscope was withdrawn. Belladonna and opium suppository were placed revealing enlarged prostate that is smooth and non-fluctuant without any nodules. The patient was then uneventfully reversed from anesthesia and taken to the recovery room in stable condition. There were no complications of the procedure. He tolerated the procedure well. Explicit postop instructions were given. We will follow the patient up in the office. Jay MD Jenifer OH/MODL /[id number] cc: Kait Mcgraw MD
== END | disposition home or self-care (01) ==
LOC: OR 05:39
PROVIDERS: ATTEND Urology
DX: N39.41 Urge incontinence (principal); N39.0 Urinary tract infection, site not specified; N31.9 Neuromuscular dysfunction of bladder, unspecified; R35.1 Nocturia; N40.1 Benign prostatic hyperplasia with lower urinary tract symptoms; R39.14 Feeling of incomplete bladder emptying; N32.89 Other specified disorders of bladder; N52.9 Male erectile dysfunction, unspecified; R81 Glycosuria; G35 Multiple sclerosis; E11.9 Type 2 diabetes mellitus without complications; M10.9 Gout, unspecified; I10 Essential (primary) hypertension; F41.9 Anxiety disorder, unspecified; Z68.31 Body mass index [BMI] 31.0-31.9, adult; Z98.890 Other specified postprocedural states
CPT/HCPCS: 52005; 52287; 71046; 74420; 93005; C1758; J0587; J0696; J1100; J1200; J2001; J2250; J2405; J2704; Q9967

== ENCOUNTER → 2021-07-17 | Day surgery (SDC) | payer MEDICARE ==
[2021-07-12 12:28] LABS: BASOPHILS % 0.4 % (0.0-1.0); EOSINOPHILS # (AUTO) 0.1 (0.0-0.4); EOSINOPHILS % 2.4 % (0.0-6.0); HEMATOCRIT 39.6 % (38.2-49.6); HEMOGLOBIN 13.2 g/dL (14.0-18.0); LYMPHOCYTES # (AUTO) 0.8 (1.0-3.2); LYMPHOCYTES % 17.7 % (18.0-39.1); MEAN CORPUSCULAR HGB CONC 33.3 g/dL (31-35); MEAN CORPUSCULAR VOLUME 95.9 fL (81-99); MONOCYTES # (AUTO) 0.3 (0.2-0.8); MONOCYTES % 6.8 % (4.4-11.3); NEUTROPHILS # (AUTO) 3.4 (2.1-6.9); NEUTROPHILS % 72.5 % (38.7-80.0); PLATELET COUNT 227 x10e3/uL (140-360); RED BLOOD COUNT 4.13 x10e6/uL (4.3-5.7)
[~2021-07-17] MED LIST changes: +AMLODIPINE BESY10 MG PO; -BELLADONNA/OPIUM 30 MG SUPP RC ONE; -BOTULINUM TOXIN TYPE A 100 UNIT VIAL IM ONE; -CEFTRIAXONE SOD 1 GM/NS 50 ML 50 ML IV ONE; -DEXAMETHASONE SOD PHOS INJ 4 MG/ML VIAL ONE; -DIPHENHYDRAMINE HCL INJ 50 MG/ML VIAL ONE; -EPHEDRINE SULFATE INJ 50 MG/10 ML SYR ONE; +HYDROCODON-ACE1 EAC9 PO; -IOPAMIDOL 610MG/1ML 300 MG/ML VIAL IV ONE; +MELOXICAM7.5 MG PO; +METFORMIN HCL500 M2 PO; +METOCLOPRAM5 MG/5 ML PO; +METOPROLOL TART50 MG PO; -MIDAZOLAM HCL 2 MG/2 ML VIAL ONE; -ONDANSETRON HCL INJ 2MG/ML 2ML 2 MG/ML VIAL ONE; +PANTOPRAZOLE SO40 MG PO; +PIOGLITAZONE HC45 MG PO; -SEVOFLURANE INHAL SOLN 250 ML PEN BTL ONE; +TIZANIDINE HCL4 M1 PO; +VALSARTAN-HCTZ1 EAC1 PO; +VENLAFAXINE HCL75 M1 PO
[2021-07-17 10:25] VITALS: BP 118/79
== END | disposition home or self-care (01) ==
LOC: OR 06:41
PROVIDERS: ATTEND Internal Medicine Gastroenterology
DX: K29.50 Unspecified chronic gastritis without bleeding (principal); D12.2 Benign neoplasm of ascending colon; D12.4 Benign neoplasm of descending colon; K29.80 Duodenitis without bleeding; K31.A12 Gastric intestinal metaplasia without dysplasia, involving the body (corpus); K63.89 Other specified diseases of intestine; K62.89 Other specified diseases of anus and rectum; B96.81 Helicobacter pylori [H. pylori] as the cause of diseases classified elsewhere; K44.9 Diaphragmatic hernia without obstruction or gangrene; K57.30 Diverticulosis of large intestine without perforation or abscess without bleeding; K64.8 Other hemorrhoids; E11.9 Type 2 diabetes mellitus without complications; I10 Essential (primary) hypertension; R63.4 Abnormal weight loss; R53.1 Weakness; Z01.810 Encounter for preprocedural cardiovascular examination; Z01.812 Encounter for preprocedural laboratory examination; Z20.822 Contact with and (suspected) exposure to COVID-19; Z79.1 Long term (current) use of non-steroidal anti-inflammatories (NSAID); Z79.84 Long term (current) use of oral hypoglycemic drugs; Z79.899 Other long term (current) drug therapy
CPT/HCPCS: 36415 ×2; 43239; 45380; 45384; 45385; 82948; 85025; 88305; 88312; 93005; J2001; J2704; J3010; U0002; 45378